=== PATIENT | male | born 1985 | race Caucasian/White ===

== ENCOUNTER 2020-06-12 17:10 | Emergency (ER) | payer SELFPAY ==
[2020-06-12 17:23] VITALS: TEMP 98.5; BMI 26.6
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
--- NOTE | 2020-06-12 19:18 | PDOC ---
*Physical Exam - Vital Signs Last Vital Signs Temp Pulse Resp BP Pulse Ox 98.5 F 113 H 16 156/103 H 97 06/12/20 17:12 06/12/20 17:12 06/12/20 17:12 06/12/20 17:12 06/12/20 17:12 ED Treatment Course - Medications Given in the ED: ED Medications Discontinued Medications Generic Name Dose Route Start Last Admin Trade Name Freq PRN Reason Stop Dose Admin Oxycodone/Acetaminophen 1 combo 06/12/20 17:24 06/12/20 17:26 Percocet 5/325 - PO 06/12/20 17:25 1 combo ONCE ONE Administration ED Progress Note - Progress Note Progress Note: Care of this patient received from Dr. Witt Noncontrast CT of the chest performed for evaluation of blunt trauma of the right upper chest: Preliminary interpretation by Imaging production line mechanic: Minimally displaced transverse fracture of the mid right clavicle with slight apex superior elevation. This was superimposed on older right distal clavicle fracture. There is adjacent soft tissue edema. No acute lung contusion ,pleural effusion or pneumothorax. No mediastinal hematoma was present. Patient is primarily [place]-speaking and interpretation was by hospital staff: Findings of the CT discussed with him. He will be placed in a sling which he should keep in place until he is seen by orthopedic surgeon. Referral information for orthopedic surgeon will be provided for him and the office should be called at the start of the next business day on June 14. Follow-up should be within the next few days The patient states that he is currently experiencing recurrence of his pain (after initial relief with Percocet 5/325 tablet). Patient given another dose of Percocet 5/325, 1 tablet. Patient currently does not have a medical doctor and he has been given referral information for [facility]. He should call the office on June 14 and arrange follow-up within the next several days. He was informed that his blood pressure was elevated currently; although this may be somewhat due to his pain and stressful circumstances, he should be fully evaluated for high blood pressure. The patient understands this and states that he has a strong family history of hypertension Besides keeping his right arm in a sling, patient should ice the area of injury over the next 1 to 2 days. He can take ibuprofen/naproxen/acetaminophen as needed for mild to moderate pain Prescription for Percocet 5/325 (#16) [to be taken up to 4 times a day as needed for severe pain] sent to his pharmacy. He has been informed not to engage in any activity requires full attention while taking Percocet. Patient should return to the ER if he has persistent severe pain or experiences shortness of breath Discharge - Discharge Information Problems reviewed: Yes Clinical Impression/Diagnosis: Clavicle fracture Condition: Stable Disposition: HOME - Additional Discharge Information Prescriptions: Oxycodone HCl/Acetaminophen [Percocet 5-325 mg Tablet] 1 - 2 tab PO Q6H PRN #16 tab MDD 6 tabs PRN Reason: Severe Pain - Follow up/Referral Referrals: Lennox Bond MD [Staff Physician] - - Patient Discharge Instructions Patient Printed Discharge Instructions: How to Use a Sling, DI for Clavicle Fracture-Adult Additional Instructions: ice to right clavicle area keep right arm in sling until seen by orthopedist tylenol/motrin/aleve as needed for mild to moderate pain Percocet 5/325 1-2 tabs every 6 hours as needed for severe pain Do not engage in any activity requiring your full attention while taking Percocet Follow-up with orthopedist (Dr. Bond) on June 14 to arrange follow-up Follow-up with general medical doctor [phone] - Post Discharge Activity
[2020-06-12 21:11] VITALS: BP 153/112; PULSE 85
== END 2020-06-12 21:25 | disposition home or self-care (01) ==
LOC: FER 17:10
DX: S42.009A Fracture of unspecified part of unspecified clavicle, initial encounter for closed fracture (principal)
CPT/HCPCS: 71250-TC; 73000-TC-RT-FY; 73030-TC-RT-FY; 73070-TC-LT-FY; 99285-25